=== PATIENT | male | born 1975 | race Caucasian/White ===

== ENCOUNTER 2018-07-29 23:42 | Outpatient (CLI) | payer SELFPAY | END 2018-07-29 23:43 | disposition critical access hospital (66) | LOC: EMS 23:42 | PROVIDERS: ATTEND Surgery | DX: R44.0 Auditory hallucinations (principal) | CPT/HCPCS: A0425; A0429 ==

== ENCOUNTER 2018-07-29 23:56 | Emergency (ER) | payer SELFPAY | END 2018-07-30 00:03 | disposition left against medical advice (07) | LOC: ED 23:56 | DX: R44.0 Auditory hallucinations (principal); R45.1 Restlessness and agitation; Z53.21 Procedure and treatment not carried out due to patient leaving prior to being seen by health care provider ==

== ENCOUNTER 2018-07-30 07:04 | Outpatient (CLI) | payer SELFPAY | END 2018-07-30 07:05 | disposition EMS.NT | LOC: EMS 07:04 | PROVIDERS: ATTEND Surgery | DX: R11.10 Vomiting, unspecified (principal); R10.9 Unspecified abdominal pain ==